=== PATIENT | male | born 1940 | race Caucasian/White ===

== ENCOUNTER 2016-06-24 17:48 | Inpatient (IN) | payer MEDICARE, OTHER ==
[2016-06-24 19:04] LABS: HEMOGLOBIN 13.9 gm/dl (14.0-17.5); RED BLOOD COUNT 4.44 M/UL (4.20-5.50); WHITE BLOOD COUNT 9.9 K/UL (4.5-11.0)
[2016-06-25] MEDS ORDERED: PRAVACHOL40 MG PO (01:39)
[2016-06-25] MEDS ORDERED: HYDROCHLOROTH12.5 M1 PO (01:40)
[2016-06-25] MEDS ORDERED: ASPIR-LOW81 MG PO (01:41)
[2016-06-25] MEDS ORDERED: LISINOPRIL40 MG PO (01:41)
[2016-06-25] MEDS ORDERED: LOVAZA1 GM PO (01:42)
[2016-06-25] MEDS ORDERED: ALENDRONATE SOD35 MG PO (01:43)
[2016-06-25] MEDS ORDERED: CALCIUM600 MG PO (01:43)
[2016-06-25] MEDS ORDERED: MULTIVITAMINS1 EAC8 PO (01:46)
[2016-06-25] MEDS ORDERED: FINASTERIDE5 MG PO (01:47)
[2016-06-26 04:55] LABS: HEMOGLOBIN 11.6 gm/dl (14.0-17.5); RED BLOOD COUNT 3.73 M/UL (4.20-5.50); WHITE BLOOD COUNT 4.7 K/UL (4.5-11.0)
[2016-06-26 05:15] LABS: BUN/CREATININE RATIO 17 (0-10)
[2016-06-27 05:40] LABS: BUN/CREATININE RATIO 25 (0-10)
[2016-06-28 04:35] LABS: HEMOGLOBIN 11.5 gm/dl (14.0-17.5); RED BLOOD COUNT 3.76 M/UL (4.20-5.50)
[2016-06-28 04:36] LABS: WHITE BLOOD COUNT 6.3 K/UL (4.5-11.0)
[2016-06-28 05:06] LABS: BUN/CREATININE RATIO 22 (0-10)
[2016-06-29 06:05] LABS: BUN/CREATININE RATIO 14 (0-10)
[2016-06-29] MEDS ORDERED: LOPRESSOR 25 MG25 MG PO (13:09)
[2016-06-29] MEDS ORDERED: AUGMENTIN TAB875 MG PO (13:09)
== END 2016-06-29 14:30 | disposition home or self-care (01) | DRG 194 ==
LOC: ER1 17:48 → MED SURG 4 21:03 → ZEROF 21:03 → MED SURG 4 06-25 00:54 → PROG CARE 06-25 22:15 → MED SURG 4 06-28 18:24
PROVIDERS: Emergency Medicine; Internal Medicine Infectious Disease; ADMIT Internal Medicine
DX: J10.00 Influenza due to other identified influenza virus with unspecified type of pneumonia (principal); J44.1 Chronic obstructive pulmonary disease with (acute) exacerbation; N17.9 Acute kidney failure, unspecified; E87.2 Acidosis; J18.9 Pneumonia, unspecified organism; R55 Syncope and collapse; R00.1 Bradycardia, unspecified; I48.0 Paroxysmal atrial fibrillation; T79.6XXA Traumatic ischemia of muscle, initial encounter; E87.6 Hypokalemia; I12.9 Hypertensive chronic kidney disease with stage 1 through stage 4 chronic kidney disease, or unspecified chronic kidney disease; N18.9 Chronic kidney disease, unspecified; R53.1 Weakness; W19.XXXA Unspecified fall, initial encounter; Y92.019 Unspecified place in single-family (private) house as the place of occurrence of the external cause; S10.86XA Insect bite of other specified part of neck, initial encounter; W57.XXXA Bitten or stung by nonvenomous insect and other nonvenomous arthropods, initial encounter; E78.5 Hyperlipidemia, unspecified; Z82.49 Family history of ischemic heart disease and other diseases of the circulatory system; N40.0 Benign prostatic hyperplasia without lower urinary tract symptoms; Z86.73 Personal history of transient ischemic attack (TIA), and cerebral infarction without residual deficits; Z87.442 Personal history of urinary calculi; Z98.890 Other specified postprocedural states; Z87.891 Personal history of nicotine dependence; Z79.899 Other long term (current) drug therapy; Z79.82 Long term (current) use of aspirin
CPT/HCPCS: ECHO; 36415; 36600; 70450; 71010; 71250; 80048; 80053; 81001; 82550; 82553; 82803; 83605; 83735; 83874; 84443; 84484; 85025; 85027; 86140; 86618; 87040; 93005; 93306; 93971; 94640; 94664; 96361; 96374; 99285; J0696; J1335; J1650; J1956; J2920; J7030; J7050